=== PATIENT | female | born 1995 | race Caucasian/White ===

== ENCOUNTER 2018-04-02 16:26 | Observation (INO) ==
[2018-04-02] MEDS ORDERED: Isovue-370 500 ML INFUS..BTL IV ONE (17:17)
[2018-04-02 17:49] LABS: Basophils % 0.3 %; Eosinophils # 0.2 K/mcL (0.0-0.6); Eosinophils % 1.4 %; Hematocrit 40.8 % (35.3-44.9); Hemoglobin 13.2 g/dL (11.5-15.4); Immature Granulocytes % 0.3 % (0-4); Lymphocytes # 2.3 K/mcL (0.6-4.6); Lymphocytes % 19.1 %; Mean Corpuscular HGB Conc 32.4 g/dL (31.6-35.5); Mean Corpuscular Hemoglobin 27.6 pg (28.0-33.3); Mean Corpuscular Volume 85.4 fL (83.0-100.0); Mean Platelet Volume 10.8 fL (9.4-12.4); Monocytes # 0.6 K/mcL (0.0-1.3); Monocytes % 4.9 %; Platelet Count 387 K/mcL (140-400); Red Blood Count 4.78 M/mcL (3.82-4.97); Red Cell Distribution Width 12.7 % (11.5-14.5)
--- NOTE | 2018-04-02 17:50 | Emergency Department Note ---
Disposition Clinical Impression: Abscess Disposition: Admitted As Inpatient Condition: Good General Adult HPI - General Chief complaint: ED Skin/Abscess/Foreign Body Stated complaint: Facial abcess Time Seen by Provider: 04/02/18 17:06 Source: patient Mode of arrival: ambulatory Limitations: no limitations Nursing Notes Reviewed: Yes Vital Signs Reviewed: Yes - History of Present Illness HPI Narrative: 23-year-old female in no significant past medical history presenting to the emergency department with chief complaint of abscess on her face. Patient states she noticed approximately 4-5 days ago. Started at the middle of her chin. She was given Bactrim as an outpatient has been taking it for the past 2 days that the abscess has been getting larger and started to go up her face causing her to have some jaw and tooth pain. Patient denies any fevers, chest pain or shortness of breath. Denies any previous dental issues. Denies any history of MRSA. Patient does state she had to have a surgical incision of a spider bite on her neck a few years back. She states this is similar. Pain Scale: 6 - Related Data Home Medications Medication Instructions Recorded Confirmed No Known Home Drugs 04/02/18 04/02/18 Allergies Allergy/AdvReac Type Severity Reaction Status Date / Time lidocaine AdvReac ORAL Verified 07/28/17 20:38 BLISTERS Procaine [From Novocain] AdvReac ORAL Verified 07/28/17 20:38 BLISTERS All systems ED: reviewed and negative except as stated. Constitutional: Denies: fever, chills Eyes: Reports: as per HPI ENT ED: Reports: as per HPI Cardiovascular: Denies: chest pain, palpitations, dyspnea on exertion Respiratory: Denies: cough, dyspnea, wheezes Gastrointestinal: Denies: abdominal pain, nausea, vomiting Genitourinary: Reports: as per HPI Musculoskeletal: Reports: as per HPI Integumentary: Reports: as per HPI Neurological: Denies: weakness, numbness, paresthesias Psychiatric: Reports: as per HPI Endocrine: Reports: as per HPI Hematological/Lymphatic: Reports: as per HPI Allergic/Immunologic: Reports: as per HPI Past Medical History - Past Medical History Attestation: Yes The following information was validated with the patient. 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 Tenderness at palpation and induration noted from the mid walker up into the right mandible.) - Eye Eye exam: Present: normal appearance. Absent: scleral icterus, conjunctival injection - ENT ENT exam: mucous membranes dry - Neck Neck exam: Present: normal inspection, full ROM. Absent: tenderness, meningismus - Chest Chest inspection: Present: normal inspection, symmetric chest wall rise. Absent : tenderness, rash - Respiratory Respiratory exam: Present: normal lung sounds bilaterally. Absent: respiratory distress, wheezes - Cardiovascular Cardiovascular exam: Present: regular rate, normal rhythm, normal heart sounds - Abdominal Exam Abdominal exam: Present: soft, Non-Tender. Absent: distention, guarding, rebound - Extremities Exam Extremities exam: Present: normal inspection, full ROM - Neurological Exam Neurological exam: Present: alert, oriented X3 - Psychiatric Psychiatric exam: Present: normal affect, normal mood - Skin Skin exam: Present: warm Course Course Narrative: 23-year-old female presenting with abscess on her chin. Failure of outpatient antibiotics with Bactrim. At this time will obtain basic laboratory analysis, blood cultures and a CT of the face with IV contrast to rule out deep abscess. Patient is alert and oriented 3 in the room with stable vital signs. Disposition pending results. Patient agrees this plan. - Reevaluation(s) Reevaluation #1: Patient's laboratory analysis shows leukocytosis with a white blood cell count of 12.2. Otherwise labs within normal limits. CT of the face shows cellulitis but no definitive area to drain. At this time due to failure of outpatient therapy and worsening abscess we will plan to admit for IV antibiotics. We will start the patient with IV vancomycin. I spoke with the hospitalist on- call who agrees to accept the patient at this time. Patient remains alert and oriented 3 in room with stable vital signs. Patient agrees with this plan. Vital Signs Temperature 98.2 F 04/02/18 16:47 Pulse Rate 89 04/02/18 16:47 Respiratory Rate 16 04/02/18 16:47 Blood Pressure 152/104 04/02/18 16:47 O2 Sat by Pulse Oximetry 100 04/02/18 16:47 Temperature 97.9 F 04/02/18 21:30 Pulse Rate 94 04/02/18 21:30 Respiratory Rate 19 04/02/18 21:30 Blood Pressure 141/82 04/02/18 21:30 O2 Sat by Pulse Oximetry 99 04/02/18 21:30 Oxygen Delivery Oxygen Delivery Room Air Medical Decision Making - Lab Data Result diagrams: 04/02/18 17:39 04/02/18 17:39 Lab Results 04/02/18 04/02/18 Range/Units 17:39 17:39 WBC 12.2 H (4.3-11.1) K/mcL RBC 4.78 (3.82-4.97) M/mcL Hgb 13.2 (11.5-15.4) g/dL Hct 40.8 (35.3-44.9) % MCV 85.4 (83.0-100.0) fL MCH 27.6 L (28.0-33.3) pg MCHC 32.4 (31.6-35.5) g/dL RDW 12.7 (11.5-14.5) % Plt Count 387 (140-400) K/mcL MPV 10.8 (9.4-12.4) fL Immature Gran % 0.3 (0-4) % Seg Neutrophils % 74.0 % Lymphocytes % 19.1 % Monocytes % 4.9 % Eosinophils % 1.4 % Basophils % 0.3 % Neutrophils # 9.0 H (1.6-8.9) K/mcL Lymphocytes # 2.3 (0.6-4.6) K/mcL Monocytes # 0.6 (0.0-1.3) K/mcL Eosinophils # 0.2 (0.0-0.6) K/mcL Basophils # 0.0 (0.0-0.2) K/mcL Sodium 140 (136-145) mEq/L Potassium 3.9 (3.5-5.1) mEq/L Chloride 108 H (98-107) mEq/L Carbon Dioxide 25 (23-29) mEq/L BUN 10 (6-20) mg/dL Creatinine 0.78 (0.60-1.20) mg/dL Est GFR ( Amer) > 60 (> 60) Est GFR (Non-Af Amer) > 60 (> 60) BUN/Creatinine Ratio 13 (6-26) Glucose 94 (70-105) mg/dL Calculated Osmolality 289 (280-300) Calcium 10.1 (8.6-10.3) mg/dL Attestation Statement - Attestation Attestation: I examined this patient and my medical decision-making was reviewed with the Resident Physician, Dr. Bergeron. I agree with the documented findings, disposition and treatment plan as described except to the extent set forth below. Patient is a 23-year-old white female who presents to emergency permit today with a 5 day history of gradually worsening facial swelling and pain that started out as a pimple in the center of her chin. Patient states she was evaluated due to localized pain and swelling to the area and was started on Bactrim. Patient is taken the antibiotics for 3 days as directed and despite this medication has had worsening of symptoms. Patient now has soft tissue swelling induration and pain that extends from the site of the pimple on her chin along the right side of the angle of the jaw up towards the mandible. Patient states she also felt like she was having some swelling below the jawline and was concerned with extension into her neck and came in for evaluation. Patient's having no respiratory distress no difficulty swallowing or managing her secretions. She denies any dental pain or trauma. No hoarseness to her voice or difficulty with managing secretions. I agree with patient's physical exam findings as documented. Vital signs are stable. Patient's in no acute distress on assessment. Patient underwent lab evaluation as well as imaging with contrast to rule out abscess. Laboratory evaluation is unremarkable overall, patient has on CT what appears to be findings consistent with facial cellulitis although we cannot rule out tiny punctate areas of abscess. Patient is failed outpatient antibiotics up to this point with worsening symptoms over a short period of time so we will initiate IV antibiotics here in the ED and admit the patient for observation. Patient agrees with this plan and is hemodynamically stable
[2018-04-02 18:17] LABS: BUN/Creatinine Ratio 13 (6-26); Blood Urea Nitrogen 10 mg/dL (6-20); Calcium 10.1 mg/dL (8.6-10.3); Carbon Dioxide 25 mEq/L (23-29); Chloride 108 mEq/L (98-107); Glucose 94 mg/dL (70-105); Osmolality,Calculated 289 (280-300); Potassium 3.9 mEq/L (3.5-5.1); Sodium 140 mEq/L (136-145); eGFR For Non-African Americans > 60 (> 60)
--- NOTE | 2018-04-02 21:19 | Internal Med History&Physical ---
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 She states that on Saturday she noticed a pimple on the center of her chin with slight localized swelling and pain and was prescribed [id number]. The following morning after a hot shower it popped on its own and she had no complaints at the time however by that evening she noticed swelling right along her jaw line and mild erythema. By the following day which is this morning she noticed that the swelling had spread to the mid part of her face and going down her neck feeling numbness in some areas. She denies any respiratory distress or difficulty swallowing or managing her oral secretions. She denies any trauma preceding or any dental issues prior. On arrival here she was found to have no hoarseness to her voice or difficulty managing her airway and secretions. A CT scan was done and reviewed independently by me showing signs of soft tissue cellulitis on the right side of her face adjacent to the mandible extending toward the midline with a 5 mm ring-enhancing area as that could represent a tiny abscess but there was no drainable fluid collection appreciated. Although she remains afebrile, lab work was remarkable for mild leukocytosis at 12. Blood cultures were obtained and she was given IV vancomycin in the emergency room and is now admitted for further observation. On my assessment she was sitting up in bed comfortably with no complaints pain on touch of the affected areas. She denies a history of recurring infection in her and in her family members. Past Med Surg Social Fam HX - Past Medical History Medical history: non-contributory Additional medical history: Eczema. Depression Psychiatric history: anxiety - Past Surgical History Surgical History: , other (Laparoscopy) Additional surgical history: neck surgery. LAPAROSCOPY - Social History Smoking Status: Never smoker Smokeless Tobacco Status: No Alcohol use: none Drug use: none - Family History Mother Hx Family Endocrine Disorder: Yes Internal Medicine - H&P: Meds No Known Home Drugs 04/02/18 [History] 3 Allergy/AdvReac Type Severity Reaction Status Date / Time lidocaine AdvReac ORAL Verified 07/28/17 20:38 BLISTERS Procaine [From Novocain] AdvReac ORAL Verified 07/28/17 20:38 BLISTERS All Systems PM: A 10-system review of systems was performed and is negative for pertinent findings except as documented above in the HPI. - Constitutional Vitals: Temp Pulse Resp BP Pulse Ox 98.2 F 97 13 166/103 98 04/02/18 17:45 04/02/18 20:43 04/02/18 20:43 04/02/18 20:43 04/02/18 20:43 Exam: Vitals: Reviewed General: Well-developed white female sitting up in bed in no acute distress. Skin: Warm and supple HEENT: Moist mucous membranes. No conjunctivae pallor. Right inferior hemifacial swelling with mild erythema at the chin and a visible punctum. Tender to palpation with firm swelling appreciated. No enanthem noted in the oral cavity. No sites of drainage. Neck: Subcentimeter submental and anterior cervical LN. No JVD. No carotid bruits. No palpable thyroid. Chest: Normal thoracic expansion. Normal breath sounds. Clear to auscultation. Heart: Normal S1 & S2; rhythmic. No rubs or murmurs. Abdomen: Non-distended, soft and non-tender to palpation. No peritoneal reaction. Extremities: No clubbing, cyanosis or edema. No calf tenderness. Normal distal pulses. Neurological: Awake, alert and oriented to person, place and time. No focal deficits. Psych: Affect appropriate. Internal Med - H&P Results - Labs CBC & Chem 7: 04/02/18 17:39 04/02/18 17:39 - Assessment and plan (1) Facial cellulitis Current Visit: Yes Status: Acute Assessment and plan: Likely secondary to extension of infectious process of the "pimple" she had on her chin. The spread is concerning and such facial processes can extend into the neck and BROKER vessels causing significant compromise. She failed 3 days of outpatient abx therapy therefore warrants admission. Will continue IV vancomycin noting that the source seems to be skin/soft tissue externally however will add on ampicillin/sulbactam empirically taking into account the anaerobic oral randall and also present on the face contributing to acne. Monitor clinically daily however if there is no improvement in the next 24- 48hrs or it worsens in that period of time, she will benefit from a contrast- enhanced MRI. Follow blood cultures. If the cellulitis coalesces into a drainable abscess collection, cultures should be sent. (2) Leukocytosis Current Visit: Yes Status: Acute Assessment and plan: Likely secondary to facial infectious process. Will give fluids and abx. Repeat CBC in the morning. Qualifiers: Leukocytosis type: unspecified Qualified Code(s): D72.829 - Elevated white blood cell count, unspecified (3) Obesity (BMI 30.0-34.9) Current Visit: Yes Status: Acute Assessment and plan: Weight loss advised. Will check A1C. (4) Hypertension Current Visit: Yes Status: Acute Assessment and plan: The patient denies a history of HTN however her values here have consistently been above 140/90. Will monitor trend as it could be secondary to pain otherwise she will need outpatient follow up for this. No pharmacologic intervention necessary at this moment. Qualifiers: Hypertension type: unspecified Qualified Code(s): I10 - Essential (primary ) hypertension (5) DVT prophylaxis Current Visit: Yes Status: Acute Assessment and plan: SubQ heparin q12h. - Time Spent With Patient Total time spent is greater than 50% in coordination of care (as documented) at patient's floor/unit and/or counseling patient: Greater than 35 minutes
[2018-04-02] MEDS: Ringers Solution, Lactated 1,000 ML IVC SCH (22:14)
[2018-04-02] MEDS: *HR* HYDROcodone/Acet 5/325 mg TABLET PO PRN (22:15)
[2018-04-02] MEDS: Ampicillin/Sulbactam 1,500 MG in 0.9 % Sodium Chloride Mini Bag 100 ML IVPB SCH (23:13)
[2018-04-03 00:55] LABS: Basophils % 0.3 %; Eosinophils # 0.1 K/mcL (0.0-0.6); Eosinophils % 0.9 %; Hematocrit 38.4 % (35.3-44.9); Hemoglobin 12.5 g/dL (11.5-15.4); Immature Granulocytes % 0.3 % (0-4); Lymphocytes # 2.3 K/mcL (0.6-4.6); Mean Corpuscular HGB Conc 32.6 g/dL (31.6-35.5); Mean Corpuscular Hemoglobin 27.5 pg (28.0-33.3); Mean Corpuscular Volume 84.4 fL (83.0-100.0); Mean Platelet Volume 11.1 fL (9.4-12.4); Monocytes # 0.6 K/mcL (0.0-1.3); Monocytes % 4.1 %; Neutrophils # 11.3 K/mcL (1.6-8.9); Platelet Count 360 K/mcL (140-400); Red Blood Count 4.55 M/mcL (3.82-4.97); Red Cell Distribution Width 12.7 % (11.5-14.5); Segmented Neutrophils % 78.4 %
[2018-04-03 01:14] LABS: BUN/Creatinine Ratio 12 (6-26); Blood Urea Nitrogen 8 mg/dL (6-20); Calcium 9.2 mg/dL (8.6-10.3); Carbon Dioxide 21 mEq/L (23-29); Chloride 108 mEq/L (98-107); Glucose 112 mg/dL (70-105); Osmolality,Calculated 283 (280-300); Potassium 3.8 mEq/L (3.5-5.1); Sodium 137 mEq/L (136-145); eGFR For Non-African Americans > 60 (> 60)
[2018-04-03] MEDS: Ampicillin/Sulbactam 1,500 MG in 0.9 % Sodium Chloride Mini Bag 100 ML IVPB SCH ×4 (06:28→23:52)
[2018-04-03] MEDS: *HR* Heparin 5,000 UNIT/ML VIAL SQ SCH ×2 (07:20→16:14)
[2018-04-03] MEDS: traMADol 50 MG TABLET PO PRN ×3 (07:25→20:13)
--- NOTE | 2018-04-03 11:13 | Internal Med Progress Note ---
Hospitalist Progress Note - Encounter Date of Encounter: 04/03/18 Time of Encounter: 11:13 - Subjective Interval History: 23 F with no significant PMH who is admitted and being managed for cellulitis of the face with microabscesses She had failue outpatient therapy She remains afebrile, leukocytosis is worse than on 04/02 but patient reports minimal improvement She has no neck stiffness, no new complains She felt flushed with Vanco and may have had samantha syndrome but at my time of review,she has no new symptoms Blood culture is pending - Exam Vitals: Temp Pulse Resp BP Pulse Ox 98.2 F 70 16 122/80 99 04/03/18 09:58 04/03/18 09:58 04/03/18 09:58 04/03/18 09:58 04/03/18 09:58 Exam: Vitals: Reviewed General: NAD Skin: Warm and supple HEENT: Moist mucous membranes. No conjunctivae pallor. Right inferior hemifacial swelling with mild erythema at the chin and a visible punctum. Tender to palpation with firm swelling appreciated. No sites of drainage. Neck: Subcentimeter submental and anterior cervical LN. No JVD. No carotid bruits. No palpable thyroid. Chest: CTAB, equal chest movt Heart: S1, S2, RRR, no m/g/r. Abdomen: Soft, not tender Extremities: No clubbing, cyanosis or edema. No calf tenderness. Normal distal pulses. Neurological: Awake, alert and oriented to person, place and time. No focal deficits. Psych: Affect appropriate. - Assessment and Plan (1) Facial cellulitis Current Visit: Yes Status: Acute Assessment and Plan: Likely secondary to extension of infectious process of the "pimple" she had on her chin. Facial CT noted Continue vanco and Unasyn-Day [address] with contrast to check for worsening abscess formation if patient does not improve, becomes febrile, or has worsening leukocytosis (2) Leukocytosis Current Visit: Yes Status: Acute Assessment and Plan: Likely secondary to facial infectious process. Continue current trt Will repeat face imaging if not improving (3) DVT prophylaxis Current Visit: Yes Status: Acute Assessment and Plan: SubQ heparin q12h. (4) Obesity (BMI 30.0-34.9) Current Visit: Yes Status: Chronic Assessment and Plan: Lifestyle modification Check [id number] labs (5) Hypertension Current Visit: Yes Status: Chronic Assessment and Plan: No known hx of same Continue to monitor NO indication for treatment at this time, as blood pressure is improving without meds, elevated blood pressure on admission could be due to pain and anxiety - Time Spent with Patient Total time spent is greater than 50% in coordination of care (as documented) at patient's floor/unit and/or counseling patient: Plan of Care Discussed with: patient Internal Medicine: Result - Labs CBC & Chem 7: 04/03/18 00:27 04/03/18 00:27 Labs: Short CBC 04/03/18 Range/Units 00:27 WBC 14.5 H (4.3-11.1) K/mcL Hgb 12.5 (11.5-15.4) g/dL Hct 38.4 (35.3-44.9) % Plt Count 360 (140-400) K/mcL Neutrophils # 11.3 H (1.6-8.9) K/mcL BMP 04/03/18 00:27 Sodium 137 Potassium 3.8 Chloride 108 H Carbon Dioxide 21 L BUN 8 Creatinine 0.66 Glucose 112 H Calcium 9.2 Consult Discharge Plan - Plan Referrals: Vince Henderson, [employer] [Primary Care Provider] - (2) Leukocytosis Qualifiers: Leukocytosis type: unspecified Qualified Code(s): D72.829 - Elevated white blood cell count, unspecified (5) Hypertension Qualifiers: Hypertension type: essential hypertension Qualified Code(s): I10 - Essential (primary) hypertension
[2018-04-03] MEDS: *HR* HYDROcodone/Acet 5/325 mg TABLET PO PRN ×2 (12:01→18:12)
[2018-04-03] MEDS: Ringers Solution, Lactated 1,000 ML IVC SCH (12:12)
[2018-04-03] MEDS: Acetaminophen 325 MG TABLET PO PRN (21:23)
[2018-04-04] MEDS: *HR* HYDROcodone/Acet 5/325 mg TABLET PO PRN ×4 (00:16→19:08)
[2018-04-04] MEDS: Acetaminophen 325 MG TABLET PO PRN ×4 (04:00→22:16)
[2018-04-04 05:19] LABS: Basophils % 0.3 %; Eosinophils # 0.2 K/mcL (0.0-0.6); Eosinophils % 1.6 %; Hematocrit 38.6 % (35.3-44.9); Hemoglobin 12.4 g/dL (11.5-15.4); Immature Granulocytes % 0.3 % (0-4); Lymphocytes % 21.7 %; Mean Corpuscular HGB Conc 32.1 g/dL (31.6-35.5); Mean Corpuscular Hemoglobin 27.5 pg (28.0-33.3); Mean Corpuscular Volume 85.6 fL (83.0-100.0); Mean Platelet Volume 10.8 fL (9.4-12.4); Monocytes # 0.6 K/mcL (0.0-1.3); Monocytes % 6.6 %; Neutrophils # 6.5 K/mcL (1.6-8.9); Platelet Count 333 K/mcL (140-400); Red Blood Count 4.51 M/mcL (3.82-4.97); Red Cell Distribution Width 12.3 % (11.5-14.5); Segmented Neutrophils % 69.5 %
[2018-04-04 05:34] LABS: BUN/Creatinine Ratio 10 (6-26); Blood Urea Nitrogen 6 mg/dL (6-20); Calcium 9.1 mg/dL (8.6-10.3); Carbon Dioxide 23 mEq/L (23-29); Chloride 108 mEq/L (98-107); Glucose 93 mg/dL (70-105); Osmolality,Calculated 281 (280-300); Potassium 3.9 mEq/L (3.5-5.1); Sodium 137 mEq/L (136-145); eGFR For Non-African Americans > 60 (> 60)
[2018-04-04] MEDS: *HR* Heparin 5,000 UNIT/ML VIAL SQ SCH ×2 (06:07→17:49)
[2018-04-04] MEDS: Ampicillin/Sulbactam 1,500 MG in 0.9 % Sodium Chloride Mini Bag 100 ML IVPB SCH ×4 (06:10→23:50)
[2018-04-04 09:05] LABS: Estimated Average Glucose 103 mg/dl; Hemoglobin A1C 5.2 %
[2018-04-04] MEDS ORDERED: Ondansetron 4 MG/2 ML VIAL IVP PRN (21:56)
--- NOTE | 2018-04-04 23:22 | Internal Med Progress Note ---
Hospitalist Progress Note - Encounter Date of Encounter: 04/04/18 Time of Encounter: 19:00 - Subjective Interval History: SUBJECTIVE: The patient was admitted the day before yesterday with facial cellulitis not responding to treatment with oral Bactrim. Shortly after the admission we put him on IV vancomycin and IV Unasyn. She continues to have mild/moderate swelling with mild redness in the area of her chin. She tells me, that it has not gotten any better, yet. Denies fever and chills. Denies other symptoms. OBJECTIVE: Skin: There is mild/moderate swelling with mild redness in the area of change. There is a little bit of crusting-like appearance of her skin there. ENMT: Oral/pharyngeal mucosa is normal in appearance. Eyes: Sclera is white. There is no discharge from eyes. Respiratory: Normal breath sounds; no crackles or wheezes. CV: Heart is regular; no gallop or murmur. GI: Abdomen is soft and not tender. There is no palpable mass or visceromegaly. Neuro: There is no focal deficits. ADDITIONAL DATA: Her WBC decreased from 14.5 thousand to 9.3 thousand. BMP is normal. Blood cultures are now growing any organisms (less than 2 days). ASSESSMENT AND PLAN: Facial cellulitis. We will continue IV vancomycin and IV Unasyn. I discussed the treatment with Dr. Mcnamara, infectious diseases. - Exam Vitals: Temp Pulse Resp BP Pulse Ox 97.7 F 90 14 137/93 100 04/04/18 18:47 04/04/18 18:47 04/04/18 18:47 04/04/18 18:47 04/04/18 18:47 Exam: xx - Assessment and Plan (1) Facial cellulitis Current Visit: Yes Status: Acute (2) Obesity (BMI 30.0-34.9) Current Visit: Yes Status: Chronic - Time Spent with Patient Total time spent is greater than 50% in coordination of care (as documented) at patient's floor/unit and/or counseling patient: 25 - 35 minutes Plan of Care Discussed with: patient Internal Medicine: Result - Labs CBC & Chem 7: 04/04/18 04:55 04/04/18 04:55 Labs: Short CBC 04/04/18 Range/Units 04:55 WBC 9.3 (4.3-11.1) K/mcL Hgb 12.4 (11.5-15.4) g/dL Hct 38.6 (35.3-44.9) % Plt Count 333 (140-400) K/mcL Neutrophils # 6.5 (1.6-8.9) K/mcL BMP 04/04/18 04:55 Sodium 137 Potassium 3.9 Chloride 108 H Carbon Dioxide 23 BUN 6 Creatinine 0.63 Glucose 93 Calcium 9.1 Consult Discharge Plan - Plan Referrals: Vince Henderson BUTTON SAWYER [Primary Care Provider] -
[2018-04-05] MEDS: *HR* Promethazine 25 MG/ML VIAL IVP PRN ×2 (00:26→19:35)
[2018-04-05] MEDS: Ampicillin/Sulbactam 1,500 MG in 0.9 % Sodium Chloride Mini Bag 100 ML IVPB SCH ×3 (06:08→17:53)
[2018-04-05] MEDS: *HR* Heparin 5,000 UNIT/ML VIAL SQ SCH ×2 (06:12→17:53)
[2018-04-05] MEDS: *HR* HYDROcodone/Acet 5/325 mg TABLET PO PRN ×2 (09:22→17:53)
[2018-04-05] MEDS ORDERED: Isovue-370 500 ML INFUS..BTL IV ONE (10:20)
[2018-04-05] MEDS: Acetaminophen 325 MG TABLET PO PRN ×2 (14:39→22:27)
--- NOTE | 2018-04-05 23:45 | Internal Med Progress Note ---
Hospitalist Progress Note - Encounter Date of Encounter: 04/05/18 Time of Encounter: 19:00 - Subjective Interval History: SUBJECTIVE: The patient is in better spirits today. It looks like we have less swelling of her chin/right side of her face. Denies a fever and chills. The facial pain is mild. The patient was admitted with facial cellulitis not responding to treatment with oral Bactrim. Shortly after the admission we put her on IV vancomycin and IV Unasyn. OBJECTIVE: Skin: There is mild/moderate swelling in the area of her chin and right side of her face. The redness subsided. There is a little bit of crusting-like appearance of her skin there (mostly the area of her chin). ENMT: Oral/pharyngeal mucosa is normal in appearance. Eyes: Sclera is white. There is no discharge from eyes. Respiratory: Normal breath sounds; no crackles or wheezes. CV: Heart is regular; no gallop or murmur. GI: Abdomen is soft and not tender. There is no palpable mass or visceromegaly. Neuro: There is no focal deficits. ADDITIONAL DATA: Her WBC is 9.3 thousand; 14.5 thousand yesterday. Blood cultures are not growing any organisms, so far. Repeat his CT of the face from today shows decreasing in size fluid collection within the right perimandibular soft tissuesconsistent with a phlegmon or developing abscess. Currently, the size is 9 x 6 x 4 mm. ASSESSMENT AND PLAN: Facial cellulitis. Getting better. We will continue IV vancomycin and IV Unasyn. I discussed the treatment with Dr. Hopper, infectious diseases yesterday. - Exam Vitals: Temp Pulse Resp BP Pulse Ox 97.8 F 81 18 113/75 98 04/05/18 22:19 04/05/18 22:19 04/05/18 22:19 04/05/18 22:19 04/05/18 22:19 Exam: xx - Assessment and Plan (1) Facial cellulitis Current Visit: Yes Status: Acute (2) Obesity (BMI 30.0-34.9) Current Visit: Yes Status: Chronic - Time Spent with Patient Total time spent is greater than 50% in coordination of care (as documented) at patient's floor/unit and/or counseling patient: 25 - 35 minutes Plan of Care Discussed with: patient Internal Medicine: Result - Labs CBC & Chem 7: 04/04/18 04:55 04/04/18 04:55 - Impressions Impressions Face CT 04/05/18 10:20 IMPRESSION: Persistent but smaller fluid collection within the right perimandibular soft tissues consistent with a phlegmon or developing abscess. This currently measures 9 x 6 x 4 mm (previously 14 x 7 x 5 mm). There is surrounding inflammatory stranding consistent with a concomitant cellulitis. No odontogenic source of the infection is evident. D/ / 04/05/2018 13:38:52 Oniel Cobos MD / isidro Interpreting Provider: Oniel Cobos MD Consult Discharge Plan - Plan Referrals: Vince Henderson CNP [Primary Care Provider] -
[2018-04-06] MEDS: Ampicillin/Sulbactam 1,500 MG in 0.9 % Sodium Chloride Mini Bag 100 ML IVPB SCH ×5 (00:01→23:48)
[2018-04-06] MEDS: *HR* HYDROcodone/Acet 5/325 mg TABLET PO PRN (00:01)
[2018-04-06] MEDS: *HR* Heparin 5,000 UNIT/ML VIAL SQ SCH ×2 (06:12→17:28)
[2018-04-06 08:15] LABS: Basophils % 0.7 %; Eosinophils # 0.2 K/mcL (0.0-0.6); Eosinophils % 3.7 %; Hematocrit 37.1 % (35.3-44.9); Immature Granulocytes % 0.2 % (0-4); Lymphocytes # 2.5 K/mcL (0.6-4.6); Lymphocytes % 46.9 %; Mean Corpuscular HGB Conc 32.3 g/dL (31.6-35.5); Mean Corpuscular Hemoglobin 27.3 pg (28.0-33.3); Mean Corpuscular Volume 84.3 fL (83.0-100.0); Mean Platelet Volume 10.5 fL (9.4-12.4); Monocytes # 0.4 K/mcL (0.0-1.3); Monocytes % 6.7 %; Neutrophils # 2.2 K/mcL (1.6-8.9); Platelet Count 369 K/mcL (140-400); Red Cell Distribution Width 12.6 % (11.5-14.5); Segmented Neutrophils % 41.8 %
[2018-04-06 08:36] LABS: BUN/Creatinine Ratio 9 (6-26); Blood Urea Nitrogen 7 mg/dL (6-20); Calcium 9.1 mg/dL (8.6-10.3); Carbon Dioxide 24 mEq/L (23-29); Chloride 110 mEq/L (98-107); Glucose 91 mg/dL (70-105); Osmolality,Calculated 286 (280-300); Sodium 139 mEq/L (136-145); eGFR For Non-African Americans > 60 (> 60)
[2018-04-06] MEDS: Acetaminophen 325 MG TABLET PO PRN (09:28)
[2018-04-06] MEDS ORDERED: Aminoglycoside Consult 1 EACH MC ONE (14:59)
--- NOTE | 2018-04-06 21:30 | Internal Med Progress Note ---
Hospitalist Progress Note - Encounter Date of Encounter: 04/06/18 Time of Encounter: 19:00 - Subjective Interval History: SUBJECTIVE: The swelling of her face significantly subsided. It is mild. It is in the area of her chin with extension to the right side of her face. The pain subsided. Denies fever and chills. The patient was admitted with facial cellulitis not responding to treatment with oral Bactrim. Shortly after the admission we put her on IV vancomycin and IV Unasyn. OBJECTIVE: Skin: There is mild swelling in the area of her chin and right side of her face. The redness subsided. There is a little bit of crusting-like appearance of her skin there (mostly the area of her chin). ENMT: Oral/pharyngeal mucosa is normal in appearance. Eyes: Sclera is white. There is no discharge from eyes. Respiratory: Normal breath sounds; no crackles or wheezes. CV: Heart is regular; no gallop or murmur. GI: Abdomen is soft and not tender. There is no palpable mass or visceromegaly. Neuro: There is no focal deficits. ADDITIONAL DATA: I am ordering a CBC for tomorrow. Her last WBC was [address]365 days ago. ASSESSMENT AND PLAN: Facial cellulitis. Getting better. We will continue IV vancomycin and IV Unasyn. I will ask Dr. Hopper, infectious diseases to give me recommendations for outpatient antibiotics. - Exam Vitals: Temp Pulse Resp BP Pulse Ox 98.1 F 76 16 127/89 100 04/06/18 19:58 04/06/18 19:58 04/06/18 19:58 04/06/18 19:58 04/06/18 19:58 Exam: xx - Assessment and Plan (1) Facial cellulitis Current Visit: Yes Status: Acute (2) Obesity (BMI 30.0-34.9) Current Visit: Yes Status: Chronic - Time Spent with Patient Total time spent is greater than 50% in coordination of care (as documented) at patient's floor/unit and/or counseling patient: 25 - 35 minutes Plan of Care Discussed with: patient Internal Medicine: Result - Labs CBC & Chem 7: 04/06/18 07:55 04/06/18 07:55 Labs: Short CBC 04/06/18 Range/Units 07:55 WBC 5.4 (4.3-11.1) K/mcL Hgb 12.0 (11.5-15.4) g/dL Hct 37.1 (35.3-44.9) % Plt Count 369 (140-400) K/mcL Neutrophils # 2.2 (1.6-8.9) K/mcL BMP 04/06/18 07:55 Sodium 139 Potassium 4.0 Chloride 110 H Carbon Dioxide 24 BUN 7 Creatinine 0.74 Glucose 91 Calcium 9.1 Consult Discharge Plan - Plan Referrals: Vince Henderson, ADVERTISING COLUMNIST [Primary Care Provider] -
[2018-04-07] MEDS: Ampicillin/Sulbactam 1,500 MG in 0.9 % Sodium Chloride Mini Bag 100 ML IVPB SCH (05:35)
[2018-04-07] MEDS: *HR* Heparin 5,000 UNIT/ML VIAL SQ SCH (05:35)
--- NOTE | 2018-04-07 09:49 | Infectious Disease Consult ---
Date of Encounter: 04/07/18 Time of Encounter: 09:47 Assessment and Plan (1) Leukocytosis Status: Acute Assessment and plan: WBC elevated at 12 on admission. Worsened to 14, then trended down to normal. Likely secondary to facial cellulitis. Resolved. Qualifiers: Leukocytosis type: unspecified Qualified Code(s): D72.829 - Elevated white blood cell count, unspecified (2) Facial cellulitis Status: Acute Assessment and plan: Location: Chin and right mandible. Causative organism: Unclear. CT of the face 04/02/15 showed findings consistent with cellulitis and a tiny abscess, but no drainable fluid collection. Repeat CT of the face 04/05/18 showed decreased size of the fluid collection and concomitant cellulitis. Clinically, the patient is improved. Recommend ENT to evaluate to make sure they don't think the abscess needs drained. Continue Unasyn 3 grams IV Q6H. Continue Vancomycin IV. Pharmacy to dose. Goal trough ~15. If no drainage indicated per ENT, okay to switch to PO Augmentin and doxycycline to complete a 14 day course of treatment. Treat through 04/15/18. Monitor renal function and for drug toxicity and dose-adjust antibiotics. (3) Abscess Status: Acute (4) Obesity (BMI 30.0-34.9) Status: Chronic Infectious Disease HPI - Data of Consult Patient: new to practice Consult date: 04/07/18 Requesting Physician: Gilmar Bee Primary Care Provider: Vince Henderson CNP - Consult Narrative Reason for consult: Facial cellulitis History of present illness: Ms. Lanier is a 23 year old female with past medical history of endometriosis status post exploratory laparoscopy. The patient was admitted to the hospital April 02 for facial cellulitis. We are consulted April 07 for antibiotic recommendations for facial cellulitis. Briefly, the patient is a 23-year-old female with past medical history as stated above. The patient presented to the emergency department with complaints of facial swelling including the chin and jaw that started about 5 days prior to admission. She states it started as a blister she was started on Bactrim by her PCP and the lesion opened spontaneously and drained, but her symptoms have continued to progress. Upon arrival to the ER, the patient is afebrile hemodynamically stable. She did have a mild leukocytosis. CT of the face showed findings consistent with cellulitis and a tiny abscess, but no drainable fluid collection. Blood cultures were obtained 2 sets. She was given a dose of IV vancomycin and admitted to the hospital for further evaluation. Since admission, the patient has remained afebrile hemodynamically stable. Her white blood cell count did go up the day after admission, but has since normalized. She had persistent symptoms, so facial CT was repeated on April 05 that showed a decrease in the side of the fluid collection consistent with phlegmon versus abscess with concomitant cellulitis. Again, no drainable fluid collection was noted. Since admission, the patient has been on IV Vanco and Unasyn . We have been asked to evaluate and make further recommendations. During my exam today, the patient endorses the history as stated above. She denies any fevers or chills or rigors. Denies any congestion, earache, or sore throat. She reported pain and swelling and redness to the chin and right mandible area that had proceeded to progress down her neck. She states overall the symptoms have nearly resolved. She denies any difficulty swallowing or shortness of breath. She denies any cough or congestion. She denies any nausea or vomiting or diarrhea. She denies any abdominal pain or urinary complaints. States her appetite is good. She denies any oral thrush or other skin lesions. The patient lives at home with her and daughter. 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 She denies any known chronic infectious diseases. She denies any tobacco, alcohol, or illicit drug use. She denies recent travel outside the [facility]. CC: Gilmar Bee Past Med Surg Social Fam HX - Past Medical History Attestation: Yes The following information was validated with the patient. Source: patient, old records reviewed, nursing notes reviewed Medical history: non-contributory Additional medical history: Eczema Psychiatric history: anxiety - Past Surgical History Surgical History: , other (Laparoscopy) Additional surgical history: neck surgery. LAPAROSCOP. endometriosis - Social History Smoking Status: Never smoker Smokeless Tobacco Status: No Alcohol use: none Drug use: none Occupational status: employed Current living situation: Home, With Family Activity Level: Independent ambulation Recent Out of Country Travel Within the Last 8 Weeks: No Exposure or Possible Exposure to Illness During Travel: No - Family History Mother Hx Family Endocrine Disorder: Yes Father Name: annem arie Family Member Ethnicity: Non- Living Status: Still Living Hx Family Cardiac Disorders: Yes (htn) Hx Family Cancer: Yes (skin cancer) Infectious Disease-CN:Meds Amoxicillin/Clavulanate [Augmentin] 875 mg PO BIDWM 10 Days #20 tablet 04/07/18 [Rx] Doxycycline 100 mg PO BID 10 Days #20 capsule 04/07/18 [Rx] 3 Allergy/AdvReac Type Severity Reaction Status Date / Time lidocaine AdvReac ORAL Verified 07/28/17 20:38 BLISTERS Procaine [From Novocain] AdvReac ORAL Verified 07/28/17 20:38 BLISTERS All systems: reviewed and no additional remarkable complaints except as stated Exam - Constitutional Vitals: Temp Pulse Resp BP Pulse Ox 97.8 F 78 14 118/78 97 04/07/18 06:50 04/07/18 06:50 04/07/18 06:50 04/07/18 06:50 04/07/18 06:50 General appearance: average body habitus, cooperative, no acute distress - Head Head exam: Present: atraumatic, normal inspection, normocephalic - Eye Eye exam: Present: EOMI, normal appearance, PERRL Pupils: Present: normal accommodation - ENT ENT exam: Present: mucous membranes moist Additional comments: Edema noted to the chin and right lower jaw. No erythema noted. - Neck Neck exam: Present: normal inspection - Respiratory Respiratory exam: Present: CTAB. Absent: rales, respiratory distress, rhonchi, wheezes - Cardiovascular Cardiovascular exam: Present: RRR, +S1, +S2 - GI/Abdominal GI/Abdominal exam: Present: normal bowel sounds, soft, tenderness. Absent: distended - Extremities Exam Extremities exam: Present: normal inspection. Absent: joint swelling, pedal edema, tenderness - Neurological Exam Neurological exam: Present: alert, oriented X3, no focal deficits - Psychiatric Psychiatric exam: Present: normal affect, normal mood - Skin Skin exam: Present: dry, intact, normal color, warm Infectious Disease CN: Results - Labs CBC & Chem 7: 04/06/18 07:55 04/06/18 07:55 Consult Discharge Plan - Plan Additional Instructions: Follow-up appointments: If there is not an appointment listed below, please call your physician and schedule a follow-up appointment. If you have congestive heart failure and your symptoms return, make an appointment with your physician. Medication List: Carry an up to date list of medications you are taking at all time. We have given you an updated medication list including any new medications that you have been prescribed. Please provide that list to your primary provider Symptoms: If your condition changes or you experience any of the following symptoms, notify your physician immediately: Unusual or worsening pain, fever, persistent nausea and vomiting, bleeding, increase in swelling (especially in your legs), sudden weight gain, extreme dizziness, chest pain, increased drainage or redness from a wound or incision. Go to the emergency department if you experience a problem with breathing. Weights: If you have a history of swelling or shortness of breath, weigh yourself daily and notify your physician if you have a weight gain of two or more pounds in one day or 5 or more pounds in a week. If you experience any of the warning signs for stroke: Sudden numbness or weakness of the face, arm or leg; especially on one side of the body, sudden confusion, trouble speaking or understanding, sudden trouble seeing in one or both eyes, sudden trouble walking, dizziness, loss of balance or coordination, sudden sever headache with no cause; Call 911 or go to the emergency room. Stroke is a medical emergency. Some risk factors for stroke: Age, cigarette smoking, diabetes, excessive alcohol consumption, family history , high blood pressure, overweight, physical inactivity, prior stroke, heart attack, diagnosis of carotid artery stenosis or other artery disease. If you smoke, STOP: Smoking or tobacco use significantly increases your risk of heart and lung disease. Your chance of disease greatly increases if you continue to smoke. For more information, call the [place] tobacco quit line for smoking cessation QUIT-NOW ( ) Referrals: Nadia Fischer CNP [Advanced Practice Nurse] - 04/21/18 2:30 pm Vince Henderson CNP [Primary Care Provider] - 04/10/18 10:15 am Prescriptions: Amoxicillin/Clavulanate [Augmentin] 875 mg PO BIDWM 10 Days #20 tablet Doxycycline 100 mg PO BID 10 Days #20 capsule - Attending Attestation I examined this patient and my medical decision-making was reviewed with the Resident Physician. I agree with the documented findings, disposition and treatment plan as described except to the extent set forth below. Next This is an addendum to original report dictated by Lucy Jennings CNP. Please refer to Lucy's note for full detail. Patient is a 23-year-old woman with past medical history mentioned below presented with facial cellulitis likely secondary to a pimple. Patient came in CT scan showed possible phlegmon or early abscess that is less than 1 cm in diameter. Patient was evaluated by ENT and the recommended no surgical intervention. Patient was started on vancomycin and Zosyn. I saw the patient today and I had no signs of cellulitis. Clinically she is doing much better. Assessment and plan: Facial cellulitis with early phlegmon less than 1 cm. Stop vancomycin. Stop Zosyn. Start doxycycline amoxicillin to finish a 14 day course. Discussed with the hospitalist team.
[2018-04-07 11:25] VITALS: BP 129/74
--- NOTE | 2018-04-07 13:00 | Discharge Summary ---
Date of Encounter: 04/07/18 Time of Encounter: 12:58 - Discharge Diagnosis (1) Facial cellulitis Priority: Primary Status: Acute (2) Obesity (BMI 30.0-34.9) Priority: Secondary Status: Chronic Hospital course: T HOSPITAL COURSE: The patient is a 23-year-old woman. We admitted her with a facial cellulitis. It started from small pimple located in the center of her chin. Eventually, the swelling has spread to her face, with the right side more affected. CT of the face was obtained. It showed cellulitis with developing small phlegmon or abscess (nothing drainable). We treated her with IV vancomycin and IV Zosyn. Her blood cultures happened to be negative. Eventually, her swelling went significantly down. No fever was observed in the last 2 days preceding her discharge. Her last WBC count was normal. The patient was seen by ENT and infectious diseases before sending her home. It was decided that she would be taking oral Augmentin and oral doxycycline. CONDITION AT DISCHARGE: The patient feels good. Denies pain. Her breathing is normal. Skin: There is mild "crusting" located in the area of her chin. It is associated with mild swelling but not redness. The swelling extends to the right william-mandibular area. Respiratory: Normal breath sounds with no crackles and wheezes bilaterally. CV: Heart is regular with no gallop or murmur. GI: Abdomen is flat and soft with no palpable mass or visceromegaly. Neuro exam: There is no focal deficits. Normal speech, swallowing and gait. SEE DISCHARGE ORDERS/MEDICATIONS.. Discharge discussed with: patient, nurse, other (id..) - Time Spent with Patient Total time spent providing and/or coordinating discharge services: Greater than 30 minutes (40 minutes..) - Discharge Medications Prescriptions: Amoxicillin/Clavulanate [Augmentin] 875 mg PO BIDWM 10 Days #20 tablet Doxycycline 100 mg PO BID 10 Days #20 capsule Home Medications: Amoxicillin/Clavulanate [Augmentin] 875 mg PO BIDWM 10 Days #20 tablet 04/07/18 [Rx] Doxycycline 100 mg PO BID 10 Days #20 capsule 04/07/18 [Rx] Allergies/Adverse Reactions: 3 Allergy/AdvReac Type Severity Reaction Status Date / Time lidocaine AdvReac ORAL Verified 07/28/17 20:38 BLISTERS Procaine [From Novocain] AdvReac ORAL Verified 07/28/17 20:38 BLISTERS Date of admission: 04/02/18 20:27 Primary care physician: Vince Henderson CNP Consults: 04/07/18 05:56 Consult to Infectious Diseases [CONS] Routine Consulting Provider: Infectious Disease [place] Reason for Consult: FACIAL CELLULITIS Call Completed: Yes 04/07/18 11:58 Consult to ENT [CONS] Routine Consulting Provider: ENT [place] Reason for Consult: facial abscess Time Notified: 11:00 Call Completed: Yes Discharging clinician: Gilmar Bee Anticipated date of discharge: 04/07/18 - Constitutional Vitals: Temp Pulse Resp BP Pulse Ox 98.2 F 84 14 129/74 99 04/07/18 11:24 04/07/18 11:24 04/07/18 11:24 04/07/18 11:24 04/07/18 11:24 General appearance: Present: A&O X 3, pleasant, no acute distress, answers questions appropriately Exam: xx - Patient Status Disposition: Home, Self-Care Condition: Good Functional capacity at discharge: independent ambulation Overall status at discharge: patient is progressing back to baseline - Discharge Instructions Follow Up With: Nadia Fischer CNP [Advanced Practice Nurse] - 04/21/18 2:30 pm Vince Henderson CNP [Primary Care Provider] - 04/10/18 10:15 am Additional Instructions: Follow-up appointments: If there is not an appointment listed below, please call your physician and schedule a follow-up appointment. If you have congestive heart failure and your symptoms return, make an appointment with your physician. Medication List: Carry an up to date list of medications you are taking at all time. We have given you an updated medication list including any new medications that you have been prescribed. Please provide that list to your primary provider Symptoms: If your condition changes or you experience any of the following symptoms, notify your physician immediately: Unusual or worsening pain, fever, persistent nausea and vomiting, bleeding, increase in swelling (especially in your legs), sudden weight gain, extreme dizziness, chest pain, increased drainage or redness from a wound or incision. Go to the emergency department if you experience a problem with breathing. Weights: If you have a history of swelling or shortness of breath, weigh yourself daily and notify your physician if you have a weight gain of two or more pounds in one day or 5 or more pounds in a week. If you experience any of the warning signs for stroke: Sudden numbness or weakness of the face, arm or leg; especially on one side of the body, sudden confusion, trouble speaking or understanding, sudden trouble seeing in one or both eyes, sudden trouble walking, dizziness, loss of balance or coordination, sudden sever headache with no cause; Call 911 or go to the emergency room. Stroke is a medical emergency. Some risk factors for stroke: Age, cigarette smoking, diabetes, excessive alcohol consumption, family history , high blood pressure, overweight, physical inactivity, prior stroke, heart attack, diagnosis of carotid artery stenosis or other artery disease. If you smoke, STOP: Smoking or tobacco use significantly increases your risk of heart and lung disease. Your chance of disease greatly increases if you continue to smoke. For more information, call the [employer] tobacco quit line for smoking cessation -NOW ( ) - Diet and Activity Activity: resume usual activities as tolerated Diet: low fat, low cholesterol - VTE Reasons for not Prescribing Prophylaxis: Treatment not Indicated - Low risk for VTE Deep Vein Thrombosis/Pulmonary Embolism Present on Admission: No
[2018-04-07] MEDS ORDERED: Doxycycline 100 MG CAPSULE PO SCH (13:30)
--- NOTE | 2018-04-07 13:53 | ENT - Consult Note ---
Date of Encounter: 04/07/18 Time of Encounter: 13:00 Assessment and Plan (1) Facial cellulitis Status: Acute Patient seen and examined at bedside today. Patient has very small area of residual cellulitis, <0.5 cm palpated in the right perimandibular region. NO area of fluctuance, induration, or erythema noted. Patient has demonstrated clinical improvement with administration of IV antibiotics. WBC are within normal limit at last blood draw. Recommend patient continue antibiotics per recommendations of infectious disease. No further surgical ENT intervention is warranted at this time. Patient to follow-up in 1-2 weeks outpatient in ENT clinic for reassessment. All questions answered. History of Present Illness Consult date: 04/07/18 Reason for ENT Consult: other Comment: facial cellulitis Requesting physician: Sandor Barron History of present illness: Patient is a 23-year-old female with past medical history of eczema and anxiety. Patient was admitted for right facial cellulitis on 04/02/18. Patient reports her symptoms of pain and swelling of the right jaw and right lower lip area began last Saturday03/31/18. Patient reports she was seen outpatient by PCP for complaint and was taking oral Bactrim which, was not improving her symptoms. She reports the area started as a blister, continued to worsen, and spontaneously ruptured and drained. She reports her symptoms of swelling and pain continued to progress until she was seen in the ER on and subsequently admitted. Upon arrival to the ER, the patient was afebrile hemodynamically stable. She did have a mild leukocytosis. CT of the face showed findings consistent with cellulitis, and 5 mm ring-enhancing areas with possibility of tiny abscesses; however, no drainable fluid collection was present. Patient has been receiving IV vancomycin and IV Unasyn during the course of her admission. Infectious disease also consulted. CT was repeated on April 05 that showed persistent but smaller fluid collection within the right perimandibular soft tissues consistent with a phlegmon or developing abscess measuring 9 x 6 x 4 mm decreased from previous, and surrounding inflammatory stranding consistent with a concomitant cellulitis. Findings were discussed between hospitalist and ENT account solutions analyst who did not recommend further surgical intervention or draining of the area at that time. Past Med Surg Social Fam HX - Past Medical History Medical history: non-contributory Additional medical history: Eczema Psychiatric history: anxiety - Past Surgical History Surgical History: , other (Laparoscopy) Additional surgical history: neck surgery. LAPAROSCOP. endometriosis - Social History Smoking Status: Never smoker Smokeless Tobacco Status: No Alcohol use: none Drug use: none - Family History Mother Hx Family Endocrine Disorder: Yes Father Name: anne marie Family Member Ethnicity: Non- Living Status: Still Living Hx Family Cardiac Disorders: Yes (htn) Hx Family Cancer: Yes (skin cancer) Medications and Allergies Amoxicillin/Clavulanate [Augmentin] 875 mg PO BIDWM 10 Days #20 tablet 04/07/18 [Rx] Doxycycline 100 mg PO BID 10 Days #20 capsule 04/07/18 [Rx] 3 Allergy/AdvReac Type Severity Reaction Status Date / Time lidocaine AdvReac ORAL Verified 07/28/17 20:38 BLISTERS Procaine [From Novocain] AdvReac ORAL Verified 07/28/17 20:38 BLISTERS ENT - ROS - EENT Nose, mouth and throat: other (swelling of the right lower lip/jaw) ENT Exam Initial Vital Signs Temp Pulse Resp BP Pulse Ox 98.2 F 89 16 152/104 100 04/02/18 16:47 04/02/18 16:47 04/02/18 16:47 04/02/18 16:47 04/02/18 16:47 - General physical appearance well developed, well nourished, no distress, no pain - Eyes PERRL, normal ocular movement - ENT normal pinna, normal nares, normal mucosa, CN 2-12 grossly intact, Other (small area<0.5cm of firmness, noted to right perimandibular area. no fluctuance, induration, or erythema of the area noted. EARS: TM's normal bilaterally. Bilateral EAC's clear. Nose: septum gorslsy midline, nasal mucosa moist, inferior turbinates normal bilaterally. Oral: teeth in good repair, tongue midline, no masses or lesions noted or palpated with bimanual palpation. Oropharynx: uvula midline, tonsils atrophied. ) - Neck trachea midline, other (shotty lymphadenopathy noted to right anterior cervical chain) - Respiratory normal expansion, normal respiratory effort - Integumentary other (flaking of right lower lip, no redness) - Psychiatric oriented to time, oriented to person, oriented to place, speech is normal Exam Initial Vital Signs Temp Pulse Resp BP Pulse Ox 98.2 F 89 16 152/104 100 04/02/18 16:47 04/02/18 16:47 04/02/18 16:47 04/02/18 16:47 04/02/18 16:47 Results - Labs 04/06/18 07:55 04/06/18 07:55 Abnormal lab results MCH 27.3 pg (28.0-33.3) L 04/06/18 07:55 Chloride 110 mEq/L (98-107) H 04/06/18 07:55 Vancomycin Trough 12 mcg/mL (5-10) H 04/06/18 07:55 All other labs normal. Consult Discharge Plan - Plan Additional Instructions: Follow-up appointments: If there is not an appointment listed below, please call your physician and schedule a follow-up appointment. If you have congestive heart failure and your symptoms return, make an appointment with your physician. Medication List: Carry an up to date list of medications you are taking at all time. We have given you an updated medication list including any new medications that you have been prescribed. Please provide that list to your primary provider Symptoms: If your condition changes or you experience any of the following symptoms, notify your physician immediately: Unusual or worsening pain, fever, persistent nausea and vomiting, bleeding, increase in swelling (especially in your legs), sudden weight gain, extreme dizziness, chest pain, increased drainage or redness from a wound or incision. Go to the emergency department if you experience a problem with breathing. Weights: If you have a history of swelling or shortness of breath, weigh yourself daily and notify your physician if you have a weight gain of two or more pounds in one day or 5 or more pounds in a week. If you experience any of the warning signs for stroke: Sudden numbness or weakness of the face, arm or leg; especially on one side of the body, sudden confusion, trouble speaking or understanding, sudden trouble seeing in one or both eyes, sudden trouble walking, dizziness, loss of balance or coordination, sudden sever headache with no cause; Call 911 or go to the emergency room. Stroke is a medical emergency. Some risk factors for stroke: Age, cigarette smoking, diabetes, excessive alcohol consumption, family history , high blood pressure, overweight, physical inactivity, prior stroke, heart attack, diagnosis of carotid artery stenosis or other artery disease. If you smoke, STOP: Smoking or tobacco use significantly increases your risk of heart and lung disease. Your chance of disease greatly increases if you continue to smoke. For more information, call the [place] tobacco quit line for smoking cessation 7321 QUITNOW ( ) Referrals: Nadia Fischer CNP [Advanced Practice Nurse] - 04/21/18 2:30 pm Vince Henderson CNP [Primary Care Provider] - 04/10/18 10:15 am Prescriptions: Amoxicillin/Clavulanate [Augmentin] 875 mg PO BIDWM 10 Days #20 tablet Doxycycline 100 mg PO BID 10 Days #20 capsule
== END 2018-04-07 15:00 | disposition home or self-care (01) ==
LOC: 3NENU 16:26 → EMEROOARM 16:26 → SUATTDRO 20:27 → 3NENU 20:49
PROVIDERS: ADMIT Internal Medicine; ATTEND Internal Medicine

== ENCOUNTER → 2019-06-22 16:51 | Observation (INO) ==
[2019-06-22 14:57] LABS: Bilirubin,Urine Negative (Negative); Blood,Urine Negative (Negative); Clarity,Urine Turbid (Clear); Color,Urine Yellow (Yellow); Glucose,Urine (UA) Normal (Normal); Ketones,Urine Negative (Negative); Leukocyte Esterase,Urine Negative (Negative); Nitrite,Urine Negative (Negative); Protein,Urine Negative (Neg-Trace); Urobilinogen,Urine Normal (Normal)
[2019-06-22 14:59] LABS: Bacteria,Urine None Seen per hpf (None-Few); Hyaline Casts,Urine None Seen per lpf (None-Few); RBC,Urine 0-3 per hpf (0-3); Squamous Epithelial Cell,Urine Many per lpf (None-Few); WBC,Urine 0-3 per hpf (0-3)
[2019-06-22 17:54] LABS: Amphetamine Screen,Urine Negative ng/mL (Cutoff=1000); Barbiturate Screen,Urine Negative ng/mL (Cutoff=200); Benzodiazepines Screen,Urine Negative ng/mL (Cutoff=200); Cannabinoid Screen,Urine Negative ng/mL (Cutoff = 50); Cocaine Screen,Urine Negative ng/mL (Cutoff= 300); Opiate Screen,Urine Negative ng/mL (Cutoff=300); Phencyclidine Screen,Urine Negative ng/mL (Cutoff=25)
== END | disposition home or self-care (01) ==
LOC: 1NENULAB
PROVIDERS: ADMIT Advanced Practice Midwife; ATTEND Advanced Practice Midwife

== ENCOUNTER → 2019-08-12 11:16 | Observation (INO) ==
[~2019-08-12 11:16] MED LIST: Ringers Solution, Lactated 1,000 ML ONE
== END | disposition other institution (70) ==
LOC: 1NENULAB
PROVIDERS: ADMIT Registered Nurse; ATTEND Registered Nurse

== ENCOUNTER → 2019-08-12 15:29 | Observation (INO) | END | disposition home or self-care (01) | LOC: 1NENULAB | PROVIDERS: ADMIT Registered Nurse; ATTEND Registered Nurse ==

== ENCOUNTER → 2019-08-17 13:40 | Observation (INO) | END | disposition home or self-care (01) | LOC: 1NENULAB | PROVIDERS: ADMIT Advanced Practice Midwife; ATTEND Advanced Practice Midwife ==

== ENCOUNTER → 2019-09-12 21:45 | Observation (INO) ==
[2019-09-12 18:32] LABS: Bilirubin,Urine Negative (Negative); Blood,Urine Negative (Negative); Clarity,Urine Clear (Clear); Color,Urine Yellow (Yellow); Glucose,Urine (UA) Normal (Normal); Ketones,Urine Negative (Negative); Leukocyte Esterase,Urine Negative (Negative); Nitrite,Urine Negative (Negative); PH,Urine 6.5 pH Units (5.0-8.0); Protein,Urine Negative (Neg-Trace); Urobilinogen,Urine Normal (Normal)
[2019-09-12 19:11] LABS: Alanine Aminotransferase 12 Units/L (7-52); Aspartate Amino Transferase 12 Units/L (13-39); BUN/Creatinine Ratio 10 (6-26); Blood Urea Nitrogen 7 mg/dL (6-20); Lactate Dehydrogenase 137 Units/L (140-271); Uric Acid 4.7 mg/dL (2.3-7.6); eGFR For African Americans > 60 (> 60); eGFR For Non-African Americans > 60 (> 60)
[2019-09-12 19:14] LABS: Protein/Creatinine Ratio,Urine 0.12 mg/mg (0.00-0.20)
[2019-09-12 19:50] LABS: Basophils % 0.1 %; Eosinophils # 0.1 K/mcL (0.0-0.6); Eosinophils % 0.6 %; Hematocrit 34.6 % (35.3-44.9); Hemoglobin 11.1 g/dL (11.5-15.4); Immature Granulocytes % 0.5 % (0-4); Lymphocytes # 2.2 K/mcL (0.6-4.6); Lymphocytes % 16.1 %; Mean Corpuscular HGB Conc 32.1 g/dL (31.6-35.5); Mean Corpuscular Hemoglobin 26.9 pg (28.0-33.3); Mean Corpuscular Volume 83.8 fL (83.0-100.0); Mean Platelet Volume 9.8 fL (9.4-12.4); Monocytes # 0.7 K/mcL (0.0-1.3); Monocytes % 5.1 %; Neutrophils # 10.8 K/mcL (1.6-8.9); Platelet Count 399 K/mcL (140-400); Red Blood Count 4.13 M/mcL (3.82-4.97); Red Cell Distribution Width 13.4 % (11.5-14.5); Segmented Neutrophils % 77.6 %; White Blood Count 13.9 K/mcL (4.3-11.1)
== END | disposition home or self-care (01) ==
LOC: 1NENULAB
PROVIDERS: ADMIT Advanced Practice Midwife; ATTEND Advanced Practice Midwife

== ENCOUNTER → 2019-09-21 18:14 | Observation (INO) | END | disposition home or self-care (01) | LOC: 1NENULAB | PROVIDERS: ADMIT Obstetrics & Gynecology; ATTEND Obstetrics & Gynecology ==

== ENCOUNTER → 2019-09-29 17:45 | Observation (INO) ==
[2019-09-29 16:45] LABS: Basophils % 0.1 %; Eosinophils # 0.1 K/mcL (0.0-0.6); Eosinophils % 0.6 %; Hematocrit 34.9 % (35.3-44.9); Hemoglobin 11.1 g/dL (11.5-15.4); Immature Granulocytes % 0.5 % (0-4); Lymphocytes # 2.1 K/mcL (0.6-4.6); Lymphocytes % 14.1 %; Mean Corpuscular HGB Conc 31.8 g/dL (31.6-35.5); Mean Corpuscular Hemoglobin 26.5 pg (28.0-33.3); Mean Corpuscular Volume 83.3 fL (83.0-100.0); Mean Platelet Volume 9.9 fL (9.4-12.4); Monocytes # 0.8 K/mcL (0.0-1.3); Monocytes % 5.2 %; Neutrophils # 11.6 K/mcL (1.6-8.9); Platelet Count 441 K/mcL (140-400); Red Blood Count 4.19 M/mcL (3.82-4.97); Red Cell Distribution Width 14.3 % (11.5-14.5); Segmented Neutrophils % 79.5 %; White Blood Count 14.6 K/mcL (4.3-11.1)
[2019-09-29 16:47] LABS: Protein/Creatinine Ratio,Urine 0.14 mg/mg (0.00-0.20)
[2019-09-29 16:58] LABS: Alanine Aminotransferase 16 Units/L (7-52); Aspartate Amino Transferase 13 Units/L (13-39); BUN/Creatinine Ratio 16 (6-26); Blood Urea Nitrogen 9 mg/dL (6-20); Lactate Dehydrogenase 139 Units/L (140-271); Uric Acid 4.5 mg/dL (2.3-7.6); eGFR For African Americans > 60 (> 60); eGFR For Non-African Americans > 60 (> 60)
[~2019-09-29 17:45] MED LIST changes: +Acetaminophen/Butalbital/CaffeineTABLET PO PRN; -Ringers Solution, Lactated 1,000 ML ONE
== END | disposition home or self-care (01) ==
LOC: 1NENULAB
PROVIDERS: ADMIT Obstetrics & Gynecology; ATTEND Obstetrics & Gynecology